=== PATIENT | male | born 1990 | race Caucasian/White ===

== ENCOUNTER 2017-01-18 10:43 | Emergency (ER) | payer OTHER ==
[2017-01-18 10:48] VITALS: BP 115/67; PULSE 58; TEMP 98.1; BMI 21.4
--- NOTE | 2017-01-18 11:01 | PDOC ---
History of Present Illness - General Chief Complaint: Pain Stated Complaint: ABD PAIN Time Seen by Provider: 01/18/17 10:55 History Source: Patient Exam Limitations: No Limitations - History of Present Illness Initial Comments: CHIEF COMPLAINT: 26 y/o afebrile male with no significant PMH c/o abdominal pain for the past 1 week. HISTORY OF PRESENT ILLNESS: The patient points to his epigastric region as source of pain for the past week. He denies fever, chills, n/v/d, CP, SOB, back pain, dysuria, constipation. He has not taken any OTC medications for his symptoms. Vital signs on arrival are within normal limits REVIEW OF SYSTEMS: GENERAL/CONSTITUTIONAL: No fever/chills. No weakness. No weight change. HEAD, EYES, EARS, NOSE AND THROAT: No change in vision. No ear pain or discharge. No sore throat. CARDIOVASCULAR: No chest pain or shortness of breath. RESPIRATORY: No cough, wheezing, or hemoptysis. GASTROINTESTINAL: +abdominal pain. No nausea, vomiting, diarrhea. GENITOURINARY: No dysuria, frequency, or change in urination. MUSCULOSKELETAL: No joint or muscle swelling or pain. No neck or back pain. SKIN: No rash or easy bruising. NEUROLOGIC: No headache, vertigo, loss of consciousness, or loss of sensation. PHYSICAL EXAM: GENERAL: The patient is awake, alert, and fully oriented, in no acute distress. He is very well appearing, ambulatory, in NAD or obvious discomfort. HEAD: Normal with no signs of trauma. ENT: Pupils equal, round and reactive to light, extraocular movements intact, sclera anicteric, conjunctiva clear. Neck supple. LUNGS: Clear to auscultation bilaterally. Normal excursion. No respiratory distress or use of accessory muscles. CV: RRR, S1/S2, no MRG. Cap refill < 2 sec. ABDOMEN: Soft, non-distended, very minimal TTP of epigastric region. No rebound , guarding or rigidity. Normal BS x4. EXTREMITIES: Normal range of motion, no edema. NEUROLOGICAL: Normal speech, normal gait. CN II-XII grossly intact. PSYCH: Normal mood, normal affect. SKIN: Warm, dry, normal turgor, no rashes or lesions noted. Past History - Past Medical History Allergies/Adverse Reactions: Allergies Allergy/AdvReac Type Severity Reaction Status Date / Time No Known Allergies Allergy Verified 01/18/17 10:47 Home Medications: Ambulatory Orders Ranitidine HCl [Zantac] 150 mg PO BID #30 tablet 01/18/17 Other medical history: DENIES - Psycho/Social/Smoking Cessation Hx Anxiety: No Suicidal Ideation: No Smoking History: Never smoked Hx Alcohol Use: No Drug/Substance Use Hx: No Substance Use Type: None *Physical Exam - Vital Signs Last Vital Signs Temp Pulse Resp BP Pulse Ox 98.1 F 58 L 20 115/67 100 01/18/17 10:44 01/18/17 10:44 01/18/17 10:44 01/18/17 10:44 01/18/17 10:44 Medical Decision Making - Medical Decision Making A/P: 26 y/o male, very well appearing, afebrile without n/v/d, with 1 week of epigastric pain. Plan is as follows: 1. PO zantac 2. IM toradol 3. Reassess The patient states his pain has completely resolved. Will d/c to home with an Rx for Zantac and GERD diet instructions. Instructed the patient to return to the ER with any worsening or concerning symptoms. The patient verbalizes understanding of all instructions, has no further questions and is awaiting discharge. *DC/Admit/Observation/Transfer Diagnosis at time of Disposition: Epigastric pain, Bile-induced gastritis - Discharge Dispostion Disposition: HOME Condition at time of disposition: Improved - Patient Instructions Printed Discharge Instructions: GERD Diet, DI for Gastroesophageal Reflux Disease (GERD), DI for Epigastric Pain Additional Instructions: Discharge Instructions: -A prescription was sent to your pharmacy; please take as prescribed for abdominal pain -Please follow diet suggestions to help with abdominal pain -Return to the ER with any worsening or concerning symptoms Print Language: SLOVAK
[2017-01-18] MEDS ORDERED: RANITIDINE HCL 150 MG TABLET (FP) PO ONE (11:15)
[2017-01-18] MEDS ORDERED: KETOROLAC TROMETHAMINE 60 MG/2 ML VIAL IM ONE (11:15)
[2017-01-18] MEDS ORDERED: KETOROLAC TROMETHAMINE 60 MG/2 ML VIAL ONE (11:28)
[2017-01-18] MEDS ORDERED: RANITIDINE HCL 150 MG TABLET (FP) ONE (11:28)
== END 2017-01-18 12:19 | disposition home or self-care (01) ==
LOC: JER 10:43
PROC: 3E0233Z Introduction of Anti-inflammatory into Muscle, Percutaneous Approach (ICD-10-PCS; principal; 2017-01-18)
DX: K29.60 Other gastritis without bleeding (principal); K21.9 Gastro-esophageal reflux disease without esophagitis
CPT/HCPCS: 99283-25

== ENCOUNTER 2017-10-10 11:13 | Emergency (ER) | payer OTHER ==
[2017-10-10 11:32] VITALS: BP 117/66; PULSE 62; TEMP 98.1; BMI 25.0
[2017-10-10] MEDS ORDERED: KETOROLAC TROMETHAMINE 60 MG/2 ML VIAL IM ONE (12:30)
[2017-10-10] MEDS ORDERED: KETOROLAC TROMETHAMINE 60 MG/2 ML VIAL ONE (12:33)
--- NOTE | 2017-10-10 12:36 | PDOC ---
History of Present Illness - General Chief Complaint: Cold Symptoms Stated Complaint: FEVER Time Seen by Provider: 10/10/17 12:00 History Source: Patient Exam Limitations: No Limitations - History of Present Illness Initial Comments: 10/10/17 12:34 My chief complaint: Lower back pain History of present illness: Patient is a 26-year-old male with no significant medical history here today complaining of lower back pain times one week. Patient also reports that last week he had a fever and cough however no longer has a cough. Patient denies any radiation of pain down the legs from his back or any saddle anesthesia or weakness or numbness of legs or any incontinency. Patient denies doing any heavy lifting or any exercise. Severity: reports: moderate Pain Location: reports: back Method of Injury: Yes: unknown Modifying Factors: improves with: None Loss of Consciousness: no loss of consciousness Associated Symptoms (Fall): denies symptoms Past History - Past Medical History Allergies/Adverse Reactions: Allergies Allergy/AdvReac Type Severity Reaction Status Date / Time No Known Allergies Allergy Verified 10/10/17 11:29 Home Medications: Ambulatory Orders NK [No Known Home Medication] 10/10/17 COPD: No Other medical history: DENIES. - Suicide/Smoking/Psychosocial Hx Smoking History: Never smoked Hx Alcohol Use: No Drug/Substance Use Hx: No Substance Use Type: None Review of Systems - Review of Systems Able to Perform ROS?: Yes Constitutional: No: Symptoms Reported HEENTM: No: Symptoms Reported Respiratory: No: Symptoms reported Cardiac (ROS): No: Symptoms Reported ABD/GI: No: Symptoms Reported : No: Symptoms Reported Musculoskeletal: Yes: Back Pain Integumentary: No: Symptoms Reported Neurological: No: Symptoms reported *Physical Exam - Vital Signs Last Vital Signs Temp Pulse Resp BP Pulse Ox 98.1 F 62 19 117/66 99 10/10/17 11:29 10/10/17 11:29 10/10/17 11:29 10/10/17 11:29 10/10/17 11:29 - Physical Exam General Appearance: Yes: Appropriately Dressed HEENT: positive: Normal ENT Inspection Neck: negative: Lymphadenopathy (R), Lymphadenopathy (L) Respiratory/Chest: positive: Lungs Clear, Normal Breath Sounds. negative: Chest Tender, Respiratory Distress Cardiovascular: positive: Regular Rhythm, Regular Rate, S1, S2 Gastrointestinal/Abdominal: positive: Normal Bowel Sounds, Soft. negative: Tender, Organomegaly, Increased Bowel Sounds, Distended, Guarding, Rebound, Tenderness, Hernia, Mass, Hepatomegaly, Spleenomegaly Integumentary: positive: Normal Color Neurologic: positive: Alert, Normal Response, Motor Strength 5/5 (b/l lower extremities), Respond to painful stimul, Responsive. negative: Numbness, Sensory Deficit Medical Decision Making - Medical Decision Making 10/10/17 12:36 Patient is a 26-year-old male with no significant medical history here today complaining of lower back pain times one week. Patient also reports that last week he had a fever and cough however no longer has a cough. Patient denies any radiation of pain down the legs from his back or any saddle anesthesia or weakness or numbness of legs or any incontinency. Patient denies doing any heavy lifting or any exercise. 10/10/17 12:37 Lower Back pain PLAN: toradol 60 mg IM follow up orthopedist [facility] [phone] *DC/Admit/Observation/Transfer Diagnosis at time of Disposition: Low back pain Qualifiers: Chronicity: unspecified Back pain laterality: bilateral Sciatica presence: without sciatica Qualified Code(s): M54.5 - Low back pain - Discharge Dispostion Disposition: HOME Condition at time of disposition: Stable - Referrals - Patient Instructions Additional Instructions: Avoid any strenuous activities or exercise use proper lifting technique demonstrated in exam room Follow up with orthopedist if back pain continues at [facility] at [phone] asked for the orthopedic clinic Follow up at [facility] to obtain a primary care physician to get a complete physical at [phone] Take ibuprofen as needed as directed by photo optics technician for pain Return to emergency room if symptoms worsen radiation of pain down the legs numbness or weakness of legs or numbness of private area or loss of control of bladder or bowel movement Patient voiced understanding of discharge instructions and all questions were answered Evite cualquier actividad extenuante o ejercicio: use la tcnica de levantamiento adecuada demostrada en la yessy de examen. [place] un seguimiento con un ortopedista si el dolor de espalda contina en el [facility] llamando al [phone] para solicitar la clnica ortopdica. [place] un seguimiento en la atencin mdica de Adrian Kee para obtener un m dico de atencin primaria para obtener un examen fsico completo al [phone] [place] ibuprofeno segn las indicaciones del fabricante para el dolor Regresar a la yessy de emergencias si los sntomas empeoran la radiacin del dolor en las piernas entumecimiento o debilidad de las piernas o entumecimiento del fartun privada o prdida de control de la vejiga o evacuacin intestinal El paciente expres comprensin de las instrucciones de don y todas las preguntas fueron respondidas - Post Discharge Activity
== END 2017-10-10 13:31 | disposition home or self-care (01) ==
LOC: JERFT 11:13
PROC: 3E0233Z Introduction of Anti-inflammatory into Muscle, Percutaneous Approach (ICD-10-PCS; principal; 2017-10-10)
DX: M54.5 Low back pain (principal)
CPT/HCPCS: 99281-25

== ENCOUNTER 2018-03-05 13:07 | Emergency (ER) | payer OTHER ==
[2018-03-05 13:36] VITALS: BP 119/64; PULSE 90; TEMP 100.9; BMI 22.3
[2018-03-05] MEDS ORDERED: ACETAMINOPHEN 500 MG TABLET (FP) PO ONE (14:25)
[2018-03-05] MEDS ORDERED: ACETAMINOPHEN 500 MG TABLET (FP) ONE (14:29)
--- NOTE | 2018-03-05 14:30 | PDOC ---
History of Present Illness - General Chief Complaint: Pain Stated Complaint: RT LEG SWOLLEN Time Seen by Provider: 03/05/18 13:39 History Source: Patient - History of Present Illness Initial Comments: 27-year-old male with 3 days worth of right leg pain and swelling. Subjective fever. No chills or night sweats. He denies associated trauma. 03/05/18 14:26 Past History - Past Medical History Allergies/Adverse Reactions: Allergies Allergy/AdvReac Type Severity Reaction Status Date / Time No Known Allergies Allergy Verified 03/05/18 13:32 Home Medications: Ambulatory Orders Cephalexin [Keflex] 500 mg PO QID 10 Days #40 capsule 03/05/18 Ibuprofen [Motrin -] 600 mg PO TID #30 tablet 03/05/18 Sulfamethoxazole/Trimethoprim [Bactrim Ds -] 1 tab PO BID #20 tablet 03/05/18 COPD: No Other medical history: DENIES. - Suicide/Smoking/Psychosocial Hx Smoking History: Never smoked Have you smoked in the past 12 months: No Hx Alcohol Use: No Drug/Substance Use Hx: No Substance Use Type: None Review of Systems - Review of Systems Is the patient limited Nepalese proficient: Yes Constitutional: Yes: See HPI *Physical Exam - Vital Signs Last Vital Signs Temp Pulse Resp BP Pulse Ox 100.9 F H 90 19 119/64 99 03/05/18 13:32 03/05/18 13:32 03/05/18 13:32 03/05/18 13:32 03/05/18 13:32 - Physical Exam Comments: 03/05/18 14:27 General Appearance: Well-developed, well-nourished A&O 3 NAD Head: NC/AT Ears: External auditory canals are normal and cleat Nose: Normal no discharge Neck: Supple nontender without lymphadenopathy masses or thyromegaly Cardiac: S1 and S2 without murmurs no peripheral edema cyanosis or pallor; extremities are warm and well-perfused; capillary refill is less than 2 seconds without carotid bruits Lungs: CTA and Percussion no rales or rhonchi or wheezing breath sounds are full bilaterally Abdomen: Positive bowel sounds; soft nondistended, nontender, no guarding or rebound tenderness; no masses Musculoskeletal; Adequately aligned spine range of motion intact to spine and extremities Neurologic: Cranial nerves II-XII are grossly intact strength and sensation are symmetric and intact cerebellar testing is negative Skin: Normal color and temperature normal texture turgor no lesions or eruptions Right lower extremity reveals erythema at the anterior aspect of the right lower leg. There is associated warmth sensitivity and induration. There is no focal fluctuance. The calf is soft and nontender. There is full passive ankle and knee range of motion without pain. There is no inguinal adenopathy. There are no gross sensory or motor deficits. The erythemic borders have been outlined. *DC/Admit/Observation/Transfer Diagnosis at time of Disposition: Cellulitis of right lower leg - Discharge Dispostion Disposition: HOME Condition at time of disposition: Improved Admit: No - Prescriptions Prescriptions: Cephalexin [Keflex] 500 mg PO QID 10 Days #40 capsule Ibuprofen [Motrin -] 600 mg PO TID #30 tablet Sulfamethoxazole/Trimethoprim [Bactrim Ds -] 1 tab PO BID #20 tablet - Referrals Referrals: Christine Fuller MD [Staff Physician] - - Patient Instructions Additional Instructions: The area of infection has been outlined on your leg. If the redness extends beyond the outlined area return to the emergency room as soon as possible. Otherwise follow-up in 2-3 days is advised. Take antibiotics as prescribed as well as pain medicine. Return to the emergency room if problem is unresolved or worsens - Post Discharge Activity
[2018-03-05] MEDS ORDERED: SULFAMETHOXAZOLE/TRIMETHOPRIM 800MG/160MG D.S. TABLET PO ONE (14:32)
[2018-03-05] MEDS ORDERED: SULFAMETHOXAZOLE/TRIMETHOPRIM 800MG/160MG D.S. TABLET ONE (14:37)
== END 2018-03-05 15:54 | disposition home or self-care (01) ==
LOC: JERFT 13:07
DX: L03.115 Cellulitis of right lower limb (principal)
CPT/HCPCS: 99281-25

== ENCOUNTER 2018-03-07 18:21 | Inpatient (IN) | payer OTHER ==
--- NOTE | 2018-03-07 18:48 | PDOC ---
Rapid Medical Evaluation Time Seen by Provider: 03/07/18 18:41 Medical Evaluation: Allergies Allergy/AdvReac Type Severity Reaction Status Date / Time No Known Allergies Allergy Verified 03/07/18 18:43 03/07/18 18:44 I have performed a brief in-person evaluation of this patient. The patient presents with a chief complaint of: RLE pain/redness/swelling. Seen for for same 2 days ago and started on keflex. States sxs worse now w/ subj fever. Denies trauma. No pmhx Pertinent physical exam findings: Febrile w/ RLE diffusely swollen w/ 3x4cm fluctuant induration over R lawrence w/ extensive circumferential erythema w/ ttp and warmth, no blisters or crepitus I have ordered the following:labs The patient will proceed to the ED for further evaluation Discharge Disposition - Diagnosis Cellulitis of right lower leg - Referrals - Patient Instructions - Post Discharge Activity
[2018-03-07 19:32] LABS: BASO % 0.3 % (0-2.0); EOS % 2.2 % (0-4.5); HEMATOCRIT 36.6 % (35.4-49); HEMOGLOBIN 12.6 GM/dL (11.7-16.9); LYMPH % 9.1 % (8-40); MCH 31.1 pg (25.7-33.7); MCHC 34.4 g/dl (32.0-35.9); MEAN CELL VOLUME 90.4 fl (80-96); MEAN PLT VOLUME 7.8 fl (7.5-11.1); NEUT % 81.4 % (42.8-82.8); PLATELET COUNT 306 K/MM3 (134-434); RBC 4.05 M/mm3 (4.00-5.60); RDW 12.2 % (11.9-15.9); WHITE BLOOD COUNT 13.8 K/mm3 (4.0-10.0)
[2018-03-07 19:47] LABS: URINE APPEARANCE CLEAR; URINE BILIRUBIN NEGATIVE (<2.0 mg/dL); URINE COLOR YELLOW; URINE GLUCOSE (UA) NEGATIVE (NEGATIVE); URINE KETONE NEGATIVE (NEGATIVE); URINE LEUK ESTERASE NEGATIVE (NEGATIVE); URINE NITRITE NEGATIVE (NEGATIVE); URINE UROBILINOGEN 4.0 E.U/dl mg/dL (0.2-1.0)
[2018-03-07 19:49] LABS: URINE PROTEIN 1+ (NEGATIVE)
[2018-03-07 19:51] LABS: CHLORIDE 110 mmol/L (98-107); SODIUM 140 mmol/L (136-145)
[2018-03-07 19:52] LABS: EPI CELLS RARE /HPF (FEW); URINE MUCUS RARE
[2018-03-07 20:01] LABS: ALBUMIN 3.4 g/dl (3.4-5.0); ALK PHOS 104 U/L (45-117); ANION GAP 8 (8-16); BILIRUBIN,TOTAL 0.9 mg/dL (0.2-1.0); BLOOD UREA NITROGEN 14 mg/dL (7-18); CALCIUM 8.4 mg/dL (8.5-10.1); CO2 22 mmol/L (21-32); CREATININE 0.8 mg/dL (0.7-1.3); GLUCOSE,RANDOM 112 mg/dL (74-106); SGOT/AST 21 U/L (15-37); SGPT/ALT 27 U/L (12-78); TOT PROT 6.8 g/dl (6.4-8.2)
[2018-03-07] MEDS ORDERED: VANCOMYCIN 1,000 MG in DEXTROSE 5%-WATER - 250 ML IVPB ONE (20:27)
[2018-03-07] MEDS ORDERED: SODIUM CHLORIDE 1,000 ML IV STA ×2 (20:27→20:28)
--- NOTE | 2018-03-07 20:27 | PDOC ---
Attending Attestation - HPI HPI: 03/07/18 20:36 The patient is a 27 year old male with no significant PMH who presents to the emergency department with increased RLE redness, swelling, and pain beginning approximately 5 days ago. The patient was evaluated here for his RLE symptoms and was given Keflex and Bactrim, which he states he has used to minimal relief , He presents today after his RLE redness and swelling has increased with associated chills. The patient denies chest pain or shortness of breath. He denies nausea, vomiting, or diarrhea. Allergies: NKA PCP: None reported. <Gerald Naylor - Last Filed: 03/07/18 20:36> - Resident Resident Name: Omar Haynes - ED Attending Attestation I have performed the following: I have examined & evaluated the patient, The case was reviewed & discussed with the resident, I agree w/resident's findings & plan, Exceptions are as noted - Physicial Exam PE: 03/08/18 19:21 *Physical Exam General Appearance: Yes: Appropriately Dressed. No: Apparent Distress, Intoxicated HEENT: positive: EOMI, JULIA, Normal ENT Inspection, Normal Voice, TMs Normal, Pharynx Normal. negative: Pale Conjunctivae, Photophobia, Scleral Icterus (R), Scleral Icterus (L) Neck: positive: Trachea midline, Normal Thyroid, Supple. negative: Tender, Rigid, Carotid bruit, Stridor, Lymphadenopathy (R), Lymphadenopathy (L), Thyromegaly Respiratory/Chest: positive: Lungs Clear, Normal Breath Sounds. negative: Chest Tender, Respiratory Distress, Accessory Muscle Use, Labored Respiration, RES, Crackles, Rales, Rhonchi, Stridor, Wheezing, Dullness Cardiovascular: positive: Regular Rhythm, Regular Rate, S1, S2. negative: Edema , JVD, Murmur, Bradycardia, Tachycardia Vascular Pulses: Dorsalis-Pedis (R): 2+, Doralis-Pedis (L): 2+ Gastrointestinal/Abdominal: positive: Normal Bowel Sounds, Flat, Soft. negative : Tender, Organomegaly, Pulsatile Mass, Increased Bowel Sounds, Decreased BS, Distended, Guarding, Rebound, Hernia, Hepatomegaly, Spleenomegaly Lymphatic: negative: Adenopathy, Tenderness Musculoskeletal: positive: Normal Inspection. negative: CVA Tenderness, Decreased Range of Motion Extremity: positive: Normal Capillary Refill, Normal Inspection, Normal Range of Motion, Pelvis Stable. erythema of right lower leg from knee to ankle, tender negative: Pedal Edema, Swelling, Integumentary: positive: Normal Color, Dry, Warm. negative: Cyanotic, Erythema , Jaundice, Rash Neurologic: positive: salesperson hosiery II-XII NML intact, Fully Oriented, Alert, Normal Mood/ Affect, Motor Strength 5/5. negative: EOM Palsy, Facial Droop, Sensory Deficit - Medical Decision Making 03/08/18 19:23 Pt admitted for IV abx <Sanchez Fraga - Last Filed: 03/08/18 19:24>
[2018-03-07] MEDS ORDERED: VANCOMYCIN 1 GRAM (PRE-DOCKED) 1,000 MG/250 ML BAG IVPB ONE (20:32)
[2018-03-07] MEDS ORDERED: ACETAMINOPHEN 325 MG TABLET (FP) PO ONE ×2 (20:52)
--- NOTE | 2018-03-07 21:41 | PDOC ---
History of Present Illness - General Chief Complaint: Edema Stated Complaint: INJURY Time Seen by Provider: 03/07/18 18:41 History Source: Patient - History of Present Illness Initial Comments: 03/07/18 21:34 Patient is a 27M with no significant medical history here today complaining of erythema and swelling to right leg. He was seen in this ED two days ago, diagnosed with cellulitis, and given bactrim and ceflex. Patient reports compliance with medication. Patient reports increasing fever, chills, erythema, and pain to right leg. Patient denies history of blood clots. Patient endorses some possible minor trauma to leg. Past History - Past Medical History Allergies/Adverse Reactions: Allergies Allergy/AdvReac Type Severity Reaction Status Date / Time No Known Allergies Allergy Verified 03/07/18 18:43 Home Medications: Ambulatory Orders Cephalexin [Keflex] 500 mg PO QID 10 Days #40 capsule 03/05/18 Ibuprofen [Motrin -] 600 mg PO TID #30 tablet 03/05/18 Sulfamethoxazole/Trimethoprim [Bactrim Ds -] 1 tab PO BID #20 tablet 03/05/18 COPD: No Other medical history: DENIES. - Suicide/Smoking/Psychosocial Hx Smoking History: Never smoked Have you smoked in the past 12 months: No Hx Alcohol Use: No Drug/Substance Use Hx: No Substance Use Type: None Review of Systems - Review of Systems Comments:: 03/07/18 21:44 GENERAL/CONSTITUTIONAL: Positive for fever and chills. No weakness. HEAD, EYES, EARS, NOSE AND THROAT: No change in vision. No sore throat. CARDIOVASCULAR: No chest pain or shortness of breath RESPIRATORY: No cough, wheezing, or hemoptysis. GASTROINTESTINAL: No nausea, vomiting, diarrhea or constipation. GENITOURINARY: No dysuria, frequency, or change in urination. MUSCULOSKELETAL: Positive for right leg pain. No neck or back pain. SKIN: No rash NEUROLOGIC: No headache, vertigo, loss of consciousness, or change in strength/ sensation. ENDOCRINE: No increased thirst. No abnormal weight change HEMATOLOGIC/LYMPHATIC: No anemia, easy bleeding, or history of blood clots. ALLERGIC/IMMUNOLOGIC: No hives or skin allergy. *Physical Exam - Vital Signs Last Vital Signs Temp Pulse Resp BP Pulse Ox 100.6 F H 91 H 19 134/80 99 03/07/18 18:44 03/07/18 18:44 03/07/18 18:44 03/07/18 18:44 03/07/18 18:44 - Physical Exam Comments: 03/07/18 21:47 GENERAL: Awake, alert, and fully oriented, in no acute distress R LEG: Erythematous diffusely around right leg below knee with non-pitting edema in right foot, 1+ pulse HEAD: No signs of trauma, normocephalic, atraumatic EYES: PERRLA, EOMI, sclera anicteric, conjunctiva clear ENT: Auricles normal inspection, hearing grossly normal, nares patent, oropharynx clear without exudates. Moist mucosa NECK: Normal ROM, supple, no lymphadenopathy, JVD, or masses LUNGS: No distress, speaks full sentences, clear to auscultation bilaterally HEART: Regular rate and rhythm, normal S1 and S2, no murmurs, rubs or gallops, peripheral pulses normal and equal bilaterally. ABDOMEN: Soft, nontender, normoactive bowel sounds. No guarding, no rebound. No masses NEUROLOGICAL: Cranial nerves II through XII grossly intact. Normal speech, no focal sensorimotor deficits ED Treatment Course - LABORATORY CBC & Chemistry Diagram: 03/07/18 19:07 03/07/18 19:07 - ADDITIONAL ORDERS Additional order review: Laboratory Results 03/07/18 03/07/18 19:16 19:07 Sodium 140 Potassium 4.0 Chloride 110 H Carbon Dioxide 22 Anion Gap 8 BUN 14 Creatinine 0.8 Creat Clearance w eGFR > 60 Random Glucose 112 H Calcium 8.4 L Total Bilirubin 0.9 AST 21 ALT 27 Alkaline Phosphatase 104 Total Protein 6.8 Albumin 3.4 Urine Color Yellow Urine Appearance Clear Urine pH 6.0 Ur Specific [place] 1.024 Urine Protein 1+ H Urine Glucose (UA) Negative Urine Ketones Negative Urine Blood Negative Urine Nitrite Negative Urine Bilirubin Negative Urine Urobilinogen 4.0 e.u/dl Ur Leukocyte Esterase Negative Urine WBC (Auto) 1 Urine RBC (Auto) 1 Ur Epithelial Cells Rare Urine Mucus Rare 03/07/18 19:07 RBC 4.05 MCV 90.4 MCHC 34.4 RDW 12.2 MPV 7.8 Neutrophils % 81.4 Lymphocytes % 9.1 Monocytes % 7.0 Eosinophils % 2.2 Basophils % 0.3 - RADIOLOGY Radiology Studies Ordered: Category Date Time Status DUPLEX VASCUL US-1 LEG [US] Stat Ultrasound 03/07/18 20:28 Ordered - Medications Given in the ED: ED Medications Discontinued Medications Generic Name Dose Route Start Last Admin Trade Name Fito PRN Reason Stop Dose Admin Metronidazole 500 mg in 100 mls @ 100 mls/hr 03/07/18 20:28 03/07/18 20:39 Flagyl 500mg Premixed Ivpb - IVPB 03/07/18 21:27 100 mls/hr ONCE ONE Administration Sodium Chloride 1,000 mls @ 1,000 mls/hr 03/07/18 20:27 03/07/18 20:39 Normal Saline - IV 03/07/18 21:26 1,000 mls/hr ASDIR STA Administration Medical Decision Making - Medical Decision Making 03/07/18 21:48 Patient is a 27M with no significant medical history here today with cellulitis. Vital signs notable for fever. Exam shows cellulitis with no obvious abscess. Patient given 2L fluid bolus, vancomycin and metronidazole. Labs notable for leukocytosis. Will evaluate further with us to rule out dvt. 03/07/18 22:01 US negative for clot, does show possible hematoma. Will admit to medicine. *DC/Admit/Observation/Transfer Diagnosis at time of Disposition: Cellulitis of right lower leg - Discharge Dispostion Condition at time of disposition: Stable Decision to Admit order: Yes - Referrals - Patient Instructions - Post Discharge Activity
[2018-03-07] MEDS ORDERED: ACETAMINOPHEN 325 MG TABLET (FP) ONE (22:10)
[2018-03-08] MEDS ORDERED: CEFTRIAXONE 2 GM/100 ML BAG IVPB ONE (00:49)
--- NOTE | 2018-03-08 01:01 | HP ---
CHIEF COMPLAINT: right leg swelling and pain PCP:2 [facility] HISTORY OF PRESENT ILLNESS: 27 yr old man with no significant pmhx presents to ED for worsening right leg swelling and pain since Monday. He was walking around in the dark on Monday night when he hit his leg x3 on a wooden chair or table. On Monday he notes swelling and redness with increasing pain. He came to the ED on 03/05 and was dc' d with keflex and bactrim po, which he took on Monday and Monday. The pain and swelling became worse and he began to have chills and fevers last. He has not been able to weight bear since monday. Denies chest pain, discharge from the wound, n/v. ER course was notable for: (1) DVT study negative (2) IV abx (3) Recent Travel: none PAST MEDICAL HISTORY: was seen at [facility] 2 mo ago for full physical and says he was told everything was okay. denies dx of DM, HTN Has erythema in left eye, says he has had it for 3 yrs, was told by eye doctor it was "due to the sun" PAST SURGICAL HISTORY: hand laceration repair 12/2017 Social History: sexually active, not currently employed, lives with family friends, parents are in his country. Has a sister and brother in the area. no pets in the house. Smoking: denies Alcohol: denies Drugs: denies Family History: mother with DM, dx'd at age 52 Allergies No Known Allergies Allergy (Verified 03/07/18 18:43) HOME MEDICATIONS: Home Medications Medication Instructions Recorded Cephalexin [Keflex] 500 mg PO QID 10 Days #40 capsule 03/05/18 Ibuprofen [Motrin -] 600 mg PO TID #30 tablet 03/05/18 Sulfamethoxazole/Trimethoprim 1 tab PO BID #20 tablet 03/05/18 [Bactrim Ds -] REVIEW OF SYSTEMS CONSTITUTIONAL: Present: fever, chills, Absent: diaphoresis, generalized weakness, malaise, loss of appetite, weight change HEENT: Absent: rhinorrhea, nasal congestion, throat pain, throat swelling, difficulty swallowing, mouth swelling, ear pain, eye pain, visual changes CARDIOVASCULAR: Absent: chest pain, syncope, palpitations, irregular heart rate, lightheadedness , peripheral edema RESPIRATORY: Absent: cough, shortness of breath, dyspnea with exertion, orthopnea, wheezing, stridor, hemoptysis GASTROINTESTINAL: Absent: abdominal pain, abdominal distension, nausea, vomiting, diarrhea, constipation GENITOURINARY: Absent: dysuria, frequency, urgency, hesitancy, hematuria, flank pain, MUSCULOSKELETAL: Absent: myalgia, arthralgia, joint swelling, back pain, neck pain SKIN: Absent: rash, itching, pallor HEMATOLOGIC/IMMUNOLOGIC: Absent: easy bleeding, easy bruising, lymphadenopathy, frequent infections ENDOCRINE: Absent: unexplained weight gain, unexplained weight loss, heat intolerance, cold intolerance NEUROLOGIC: Absent: headache, focal weakness or paresthesias, dizziness, unsteady gait, seizure, mental status changes PHYSICAL EXAMINATION Vital Signs - 24 hr 03/07/18 03/07/18 18:44 22:49 Temperature 100.6 F H Pulse Rate 91 H Pulse Rate [ 102 H Apical] Respiratory 19 18 Rate Blood Pressure 134/80 Blood Pressure 107/56 [Left Arm] O2 Sat by Pulse 99 98 Oximetry (%) GENERAL: Awake, alert, and fully oriented, in no acute distress. HEAD: Normal with no signs of trauma. EYES: Pupils equal, round and reactive to light, extraocular movements intact, sclera anicteric, conjunctiva clear. No lid lag. EARS, NOSE, THROAT: Ears normal, nares patent, oropharynx clear without exudates. Moist mucous membranes. NECK: Normal range of motion, supple without lymphadenopathy, JVD, or masses. LUNGS: Breath sounds equal, clear to auscultation bilaterally. No wheezes, and no crackles. No accessory muscle use. HEART: Regular rate and rhythm, normal S1 and S2 without murmur, rub or gallop. ABDOMEN: Soft, nontender, not distended, normoactive bowel sounds, no guarding, no rebound, no masses. No hepatomegaly or splenomegaly. MUSCULOSKELETAL: Normal range of motion at all joints. No bony deformities. No CVA tenderness. UPPER EXTREMITIES: 2+ radial pulses, warm, well-perfused. No cyanosis. No clubbing. No peripheral edema. LOWER EXTREMITIES: 2+ dp/tp/popliteal b/l pulses, warm, well-perfused. Left: No calf tenderness. No peripheral edema. right: raised hematoma midshin, soft with swelling from below knee to feet. surronding erythema edema from site of hematoma radiating out, TTP marked anteriorly. fluctuance underlying the raised area NEUROLOGICAL: Cranial nerves II-XII intact. Normal speech. 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 Good eye contact. Appropriate mood and affect. SKIN: Warm, dry, normal turgor, no rashes, normal capillary refill. Laboratory Results - last 24 hr 03/07/18 03/07/18 03/07/18 19:07 19:07 19:16 WBC 13.8 H RBC 4.05 Hgb 12.6 Hct 36.6 MCV 90.4 MCH 31.1 MCHC 34.4 RDW 12.2 Plt Count 306 MPV 7.8 Neutrophils % 81.4 Lymphocytes % 9.1 Monocytes % 7.0 Eosinophils % 2.2 Basophils % 0.3 Sodium 140 Potassium 4.0 Chloride 110 H Carbon Dioxide 22 Anion Gap 8 BUN 14 Creatinine 0.8 Creat Clearance w eGFR > 60 Random Glucose 112 H Calcium 8.4 L Total Bilirubin 0.9 AST 21 ALT 27 Alkaline Phosphatase 104 Total Protein 6.8 Albumin 3.4 Urine Color Yellow Urine Appearance Clear Urine pH 6.0 Ur Specific [place] 1.024 Urine Protein 1+ H Urine Glucose (UA) Negative Urine Ketones Negative Urine Blood Negative Urine Nitrite Negative Urine Bilirubin Negative Urine Urobilinogen 4.0 e.u/dl Ur Leukocyte Esterase Negative Urine WBC (Auto) 1 Urine RBC (Auto) 1 Ur Epithelial Cells Rare Urine Mucus Rare ASSESSMENT/PLAN: 27 yr old man with cellulitis who failed outpatient antibiotic therapy admitted for IV antibiotics #Sepsis from cellulitis in right leg secondary to trauma - continue vanc for MRSA coverage, add rocephin 2g q24hr for broader gram +/- organisms, Id consult for vanc approval - ultrasound shows 4.5x1.1cm hypoechoc density suggestive of complex collection/ hematoma, may need surgery to drain the site - r/o diabetes(A1c), r/o drug use(urine tox) - check xray to r/o any fracture as to why he was not able to weigh bear, check ESR and CRP - pain controlled with iv tylenol for now - check HIV, STD testing offered and pt accepts - check lactic acid, blood cx - get baseline EKG DVT prophylaxs, pt is a fall risk until he can weight bear, elevate the leg with continuous bedrest, heparin subq for dvt prophylaxis Visit type - Emergency Visit Emergency Visit: Yes ED Registration Date: 03/07/18 Care time: The patient presented to the Emergency Department on the above date and was hospitalized for further evaluation of their emergent condition. - New Patient This patient is new to me today: Yes Date on this admission: 03/07/18 - Critical Care Critical Care patient: No Hospitalist Screening - Colonoscopy Questionnaire Colonoscopy Questionnaire: Colonoscopy Questionnaire - Patient: 50 - 75 years old and never had a screening colonoscopy: Unknown History of colon or rectal polyps, or CA: Unknown History of IBD, Crohn's disease or UC: Unknown History of abdominal radiation therapy as a child: Unknown - Relative: 1 with colon or rectal CA, or polyps at age 60 or younger: Unknown Colon or rectal CA diagnosed at age 45 or younger: Unknown Multiple relatives with colon or rectal CA: Unknown - Outcome: Screening Result: Negative Screen
--- NOTE | 2018-03-08 01:21 | PN ---
Teaching Attending Note Name of Resident: Micki Ramesh ATTENDING PHYSICIAN STATEMENT I saw and evaluated the patient. Chart, data, imaging reviewed. I reviewed the resident's note and discussed the case with the resident. I agree with the resident's findings and plan as documented. SUBJECTIVE: 27 yr old man with no significant medical history presented to with worsening right lower extremity erythema and pain. He said that on monday he hit his right leg against a wooden table in his apt and developed pain and erythema, went to er on monday and was given bactrim and keflex for right leg cellultis that he said he took. Worsening of leg pain, difficulty with weight bearing and chills which started in last 24hrs. OBJECTIVE: Last Vital Signs Temp Pulse Resp BP Pulse Ox 100.6 F H 102 H 18 107/56 98 03/07/18 18:44 03/07/18 22:49 03/07/18 22:49 03/07/18 22:49 03/07/18 22:49 General- nontoxic appearing, nad heent- moist oral mucosa neck -supple cv -s1s+s2+rrr chest - clear lungs abdomen soft, bs+ ext- right leg with erythema, tenderness+, fluid collection over lawrence, fluctance + Abnormal Lab Results 03/07/18 03/07/18 03/07/18 19:07 19:07 19:16 WBC 13.8 H Chloride 110 H Random Glucose 112 H Calcium 8.4 L Urine Protein 1+ H Right lower ext U/s- neg for dvt ASSESSMENT AND PLAN: #Sepsis secondary to cellulitis of right leg. Failure of PO antibiotics. Needs admission for IV antibiotics. DVT ruled out with duplex u/s. Should r/o DM and HIV. Do not suspect compartment syndrome. -admit to med/surg -IV vancomycin 1g IV q12hrs -ceftriaxone 2g IV q24hrs -ID consult -U/S of right leg to check for drainable collection -surgery evaluation for possible drainage of right leg collection -lactate level -blood cultures x2 -HIV test -a1c -right leg elevation -warm pack -screen for other stds -urine toxicology -serum etoh level #DVT ppx -heparin sc
[2018-03-08 07:18] LABS: BASO % 0.2 % (0-2.0); HEMOGLOBIN 12.8 GM/dL (11.7-16.9); LYMPH % 8.5 % (8-40); MCH 31.7 pg (25.7-33.7); MCHC 34.7 g/dl (32.0-35.9); MEAN CELL VOLUME 91.3 fl (80-96); MEAN PLT VOLUME 8.1 fl (7.5-11.1); MONO % 9.5 % (3.8-10.2); NEUT % 79.8 % (42.8-82.8); PLATELET COUNT 297 K/MM3 (134-434); RBC 4.05 M/mm3 (4.00-5.60); RDW 12.7 % (11.9-15.9); WHITE BLOOD COUNT 10.6 K/mm3 (4.0-10.0)
[2018-03-08 08:11] LABS: ANION GAP 9 (8-16); BLOOD UREA NITROGEN 7 mg/dL (7-18); CALCIUM 8.1 mg/dL (8.5-10.1); CHLORIDE 111 mmol/L (98-107); CO2 23 mmol/L (21-32); GLUCOSE,RANDOM 98 mg/dL (74-106); POTASSIUM 3.9 mmol/L (3.5-5.1); SODIUM 143 mmol/L (136-145)
[2018-03-08 09:12] LABS: CREATININE 0.7 mg/dL (0.7-1.3)
[2018-03-08 10:39] LABS: RPR NONREACTIVE (NONREACTIVE)
[2018-03-08] MEDS ORDERED: ACETAMINOPHEN 325 MG TABLET (FP) ONE (12:54)
[2018-03-08] MEDS ORDERED: ACETAMINOPHEN 325 MG TABLET (FP) PO ONE (12:57)
[2018-03-08 14:24] VITALS: BMI 22.7
--- NOTE | 2018-03-08 14:35 | CON.ID ---
Consult Consult Specialty:: Infectious disease Referred by:: Dr. Ramesh Reason for Consultation:: RLE cellulitis - History of Present Illness Chief Complaint: Right leg pain History of Present Illness: The patient is a 27 yo m w/ no PMH who comes into the ED c/o right leg swelling and pain for the past 4 days. Patient struck his leg on a wooden chair on Monday, then experienced progressive redness and swelling to the lower limb. Patient also endorses fevers and chills over this time. He went to the ER at [facility] on 03/05 and was d/c on Keflex and Bactrim, which he took without relief. Patient denies chest pain, abdominal pain, nausea, vomiting, diarrhea, constipation. - History Source History Provided By: Patient, Family Member Limitations to Obtaining History: Language Barrier (djiboutian) - Alcohol/Substance Use Hx Alcohol Use: No - Smoking History Smoking history: Never smoked Have you smoked in the past 12 months: No Home Medications - Allergies Allergies/Adverse Reactions: Allergies Allergy/AdvReac Type Severity Reaction Status Date / Time No Known Allergies Allergy Verified 03/07/18 18:43 - Home Medications Home Medications: Ambulatory Orders Cephalexin [Keflex] 500 mg PO QID 10 Days #40 capsule 03/05/18 Ibuprofen [Motrin -] 600 mg PO TID #30 tablet 03/05/18 Sulfamethoxazole/Trimethoprim [Bactrim Ds -] 1 tab PO BID #20 tablet 03/05/18 Review of Systems - Review of Systems Constitutional: reports: Chills, Fever. denies: Diaphoresis, Lethargy, Night Sweats, Unintentional Wgt. Loss, Weakness Cardiovascular: denies: Chest Pain, Palpitations, Shortness of Breath Respiratory: denies: Cough, Hemoptysis, SOB Gastrointestinal: denies: Abdominal Pain, Constipation, Diarrhea Genitourinary: denies: Burning, Dysuria Musculoskeletal: denies: Crepitus Integumentary: reports: Blister, Erythema Physical Exam Vital Signs: Vital Signs Temperature 100.5 F H 03/08/18 13:50 Pulse Rate 82 03/08/18 13:50 Respiratory Rate 20 03/08/18 13:50 Blood Pressure 150/97 03/08/18 13:50 O2 Sat by Pulse Oximetry (%) 98 03/08/18 12:56 Constitutional: Yes: Well Nourished, No Distress, Calm HENT: Yes: Atraumatic, Normocephalic Neck: Yes: Supple, Trachea Midline Cardiovascular: Yes: Regular Rate and Rhythm, Murmur (soft, 2/5 ejection murmur) , S1, S2. No: JVD, Gallop Respiratory: Yes: Regular, CTA Bilaterally Gastrointestinal: Yes: Normal Bowel Sounds, Soft Extremities: Yes: Erythema (the right lower limb has an area of erythema and warmth which is tender to palpation. In the center of this area is a raised are of fluctance which is less erythmatous than the surrounding skin. This are is also warm and tender to palpation.) Labs: CBC, BMP 03/08/18 06:50 03/08/18 06:50 Imaging - Results Chest X-ray: Report Reviewed, Image Reviewed Ultrasound: Report Reviewed Assessment/Plan The patient is a 27 yo m w/ no PMH admitted for RLE cellulitis and likely abscess. #cellulitis and abscess -f/u Bcx -will cover for gram positives and MRSA -Ceftriaxone 1g daily -Vancomycin 1g daily -suggest surgery consult for possible I&D -will follow -Case d/w Dr. Singh
--- NOTE | 2018-03-08 15:01 | PN ---
Physical Exam: SUBJECTIVE: Patient seen and examined. He is still complaining onf right leg pain, fever, chills. He denies chest pain, palpitations, SOB. OBJECTIVE: Vital Signs Period Temp Pulse Resp BP Sys/[place] Pulse Ox Last 24 Hr 99.2 F-101.3 F 80-102 16-20 107-150/56-97 98-100 GENERAL: The patient is awake, alert, and fully oriented, in no acute distress, lying in bed. HEAD: Normal with no signs of trauma. EYES: extraocular movements intact, sclera anicteric, conjunctiva clear. ENT: oropharynx clear without exudates, moist mucous membranes. NECK: Trachea midline, full range of motion, supple. LUNGS: clear to auscultation bilaterally, no wheezes, no crackles, no accessory muscle use. HEART: Regular rate and rhythm, S1, S2 without murmur, rub or gallop. ABDOMEN: Soft, nontender, nondistended, normoactive bowel sounds, no guarding, no rebound, no hepatosplenomegaly, no masses. EXTREMITIES: 2+ pulse in LLE, 1+ pulse in RLE. Also RLE erythema and swelling ranging from the ankle to the knee, no crepitus. The te is also mid lawrence collection of pus, 2x2 cm, not draining, warm to touch, flactuance present. NEUROLOGICAL: Normal speech, no facial asymmetry, gait not observed. PSYCH: Normal mood, normal affect. SKIN: Warm, dry, normal turgor. Laboratory Results - last 24 hr 03/07/18 03/07/18 03/07/18 19:07 19:07 19:16 WBC 13.8 H RBC 4.05 Hgb 12.6 Hct 36.6 MCV 90.4 MCH 31.1 MCHC 34.4 RDW 12.2 Plt Count 306 MPV 7.8 Neutrophils % 81.4 Lymphocytes % 9.1 Monocytes % 7.0 Eosinophils % 2.2 Basophils % 0.3 ESR Sodium 140 Potassium 4.0 Chloride 110 H Carbon Dioxide 22 Anion Gap 8 BUN 14 Creatinine 0.8 Creat Clearance w eGFR > 60 Random Glucose 112 H Lactic Acid Calcium 8.4 L Total Bilirubin 0.9 AST 21 ALT 27 Alkaline Phosphatase 104 C-Reactive Protein Total Protein 6.8 Albumin 3.4 Urine Color Yellow Urine Appearance Clear Urine pH 6.0 Ur Specific [place] 1.024 Urine Protein 1+ H Urine Glucose (UA) Negative Urine Ketones Negative Urine Blood Negative Urine Nitrite Negative Urine Bilirubin Negative Urine Urobilinogen 4.0 e.u/dl Ur Leukocyte Esterase Negative Urine WBC (Auto) 1 Urine RBC (Auto) 1 Ur Epithelial Cells Rare Urine Mucus Rare RPR Titer HIV 1&2 Antibody Screen HIV P24 Antigen 03/08/18 03/08/18 03/08/18 06:50 06:50 06:50 WBC 10.6 H RBC 4.05 Hgb 12.8 Hct 37.0 MCV 91.3 MCH 31.7 MCHC 34.7 RDW 12.7 Plt Count 297 MPV 8.1 Neutrophils % 79.8 Lymphocytes % 8.5 Monocytes % 9.5 Eosinophils % 2.0 Basophils % 0.2 ESR Sodium 143 Potassium 3.9 Chloride 111 H Carbon Dioxide 23 Anion Gap 9 BUN 7 D Creatinine 0.7 Creat Clearance w eGFR Random Glucose 98 Lactic Acid Calcium 8.1 L Total Bilirubin AST ALT Alkaline Phosphatase C-Reactive Protein 14.7 H Total Protein Albumin Urine Color Urine Appearance Urine pH Ur Specific [place] Urine Protein Urine Glucose (UA) Urine Ketones Urine Blood Urine Nitrite Urine Bilirubin Urine Urobilinogen Ur Leukocyte Esterase Urine WBC (Auto) Urine RBC (Auto) Ur Epithelial Cells Urine Mucus RPR Titer HIV 1&2 Antibody Screen HIV P24 Antigen 03/08/18 03/08/18 03/08/18 06:50 06:50 06:50 WBC RBC Hgb Hct MCV MCH MCHC RDW Plt Count MPV Neutrophils % Lymphocytes % Monocytes % Eosinophils % Basophils % ESR 28 H Sodium Potassium Chloride Carbon Dioxide Anion Gap BUN Creatinine Creat Clearance w eGFR Random Glucose Lactic Acid 0.6 Calcium Total Bilirubin AST ALT Alkaline Phosphatase C-Reactive Protein Total Protein Albumin Urine Color Urine Appearance Urine pH Ur Specific [place] Urine Protein Urine Glucose (UA) Urine Ketones Urine Blood Urine Nitrite Urine Bilirubin Urine Urobilinogen Ur Leukocyte Esterase Urine WBC (Auto) Urine RBC (Auto) Ur Epithelial Cells Urine Mucus RPR Titer Nonreactive HIV 1&2 Antibody Screen Negative HIV P24 Antigen Negative Active Medications Generic Name Dose Route Start Last Admin Trade Name Freq PRN Reason Stop Dose Admin Ceftriaxone Sodium 2 gm/ 100 mls @ 200 mls/hr 03/08/18 22:00 Dextrose IVPB [facility] Protocol ASSESSMENT/PLAN: The patient is a 27 year old male with no PMH that is admitted for cellulitis who failed outpatient antibiotic therapy admitted for IV antibiotics Sepsis due to cellulitis in RLE: - secondary to trauma - continue Vanomycin, continue Rocephin 2 g daily, will follow up ID recommendations - LA normal, blood cultures pending - Ultrasound shows 4.5x1.1cm density suggestive of complex collection/hematoma - Surgery consulted, will follow up recommendations. He will be NPO after midnight for possible surgery tomorrow. - ESR 28 and CRP elevated to 14.7 - pain controlled with Tylenol 650 mg PO Q6h - the patient had screening for HIV, RPR that came back negative. Chlamydia and Gonnorhea pending DVT PPX: -Heparin sq F/E/N: NS/no changes/Regular Dispo: med surg Visit type - Emergency Visit Emergency Visit: Yes ED Registration Date: 03/07/18 Care time: The patient presented to the Emergency Department on the above date and was hospitalized for further evaluation of their emergent condition. - New Patient This patient is new to me today: Yes Date on this admission: 03/08/18 - Critical Care Critical Care patient: No
[2018-03-08] MEDS: ACETAMINOPHEN 325 MG TABLET (FP) PO PRN ×2 (15:45→23:39)
[2018-03-08] MEDS: SODIUM CHLORIDE 1,000 ML IV SCH (15:47)
--- NOTE | 2018-03-08 15:55 | PN ---
Teaching Attending Note Name of Resident: Sterling Suero ATTENDING PHYSICIAN STATEMENT I saw and evaluated the patient. I reviewed the resident's note and discussed the case with the resident. I agree with the resident's findings and plan as documented. SUBJECTIVE: OBJECTIVE: ASSESSMENT AND PLAN: R LE cellulitis Infected hematoma v. abscess Await c/s Surgical evaluation Empiric vancomycin / ceftriaxone
[2018-03-08] MEDS ORDERED: VANCOMYCIN 1,000 MG in DEXTROSE 5%-WATER - 250 ML IVPB SCH (16:00)
[2018-03-08] MEDS ORDERED: VANCOMYCIN 1,000 MG in DEXTROSE 5%-WATER - 250 ML IVPB ONE (16:00)
[2018-03-08 19:14] LABS: COCAINE, UR NEGATIVE ng/ml (CUTOFF=300); METHADONE, UR NEGATIVE ng/ml (CUTOFF=300); OPIATES, URI NEGATIVE ng/ml (CUTOFF=300); PHENCYCLIDINE,URINE NEGATIVE ng/ml (CUTOFF=25); URINE AMPHETAMINES NEGATIVE ng/ml (CUTOFF=500); URINE BARBITURATES NEGATIVE ng/ml (CUTOFF=200); URINE BENZODIAZEPINES NEGATIVE ng/ml (CUTOFF=200)
[2018-03-08] MEDS ORDERED: traMADol HCL 50 MG TABLET PO ONE (19:37)
[2018-03-08] MEDS ORDERED: DEXTROSE 5%-WATER 100 ML IVPB ONE (21:11)
[2018-03-08] MEDS: HEPARIN NA (PORCINE) 5,000 UNITS/ML 1ML VIAL SQ SCH (21:18)
[2018-03-08] MEDS ORDERED: CEFTRIAXONE 2 GM in DEXTROSE 5%-WATER 100 ML IVPB SCH ×2 (22:00)
[2018-03-09] MEDS ORDERED: VANCOMYCIN 1,000 MG in DEXTROSE 5%-WATER - 250 ML IVPB SCH ×2 (04:00→16:00)
[2018-03-09 07:44] LABS: BASO % 0.4 % (0-2.0); EOS % 2.4 % (0-4.5); HEMATOCRIT 36.3 % (35.4-49); HEMOGLOBIN 12.6 GM/dL (11.7-16.9); LYMPH % 21.9 % (8-40); MCH 31.5 pg (25.7-33.7); MCHC 34.7 g/dl (32.0-35.9); MEAN CELL VOLUME 90.6 fl (80-96); MONO % 9.1 % (3.8-10.2); NEUT % 66.2 % (42.8-82.8); PLATELET COUNT 321 K/MM3 (134-434); RBC 4.01 M/mm3 (4.00-5.60); RDW 12.5 % (11.9-15.9); WHITE BLOOD COUNT 9.4 K/mm3 (4.0-10.0)
[2018-03-09 08:13] LABS: CHLORIDE 107 mmol/L (98-107); POTASSIUM 3.9 mmol/L (3.5-5.1); SODIUM 140 mmol/L (136-145)
[2018-03-09 08:21] LABS: ALBUMIN 2.7 g/dl (3.4-5.0); ALK PHOS 88 U/L (45-117); ANION GAP 5 (8-16); BILIRUBIN,TOTAL 0.5 mg/dL (0.2-1.0); BLOOD UREA NITROGEN 7 mg/dL (7-18); CALCIUM 8.1 mg/dL (8.5-10.1); CO2 28 mmol/L (21-32); CREATININE 0.7 mg/dL (0.7-1.3); GLUCOSE,RANDOM 103 mg/dL (74-106); SGOT/AST 23 U/L (15-37); SGPT/ALT 30 U/L (12-78); TOT PROT 5.9 g/dl (6.4-8.2)
--- NOTE | 2018-03-09 09:17 | CONSULT ---
- Consultation REQUESTING PROVIDER: Ap OGDEN CONSULT REQUEST: We have been asked to surgically evaluate this patient for a post traumatic soft tissue mass of the RLE PCP:Madyson Rodrigues HISTORY OF PRESENT ILLNESS: CTSP for evaluation and management of a post traumatic soft tissue mass of the RLE; blunt trauma 03/03/18 to the RLE; he was seen in the ER and given PO antibiotics; he had continued pain and came back to the ER for further evaluation; he has pain and swelling and subjective fever. PMHx: none PSHx: none Home Medications Medication Instructions Recorded Cephalexin [Keflex] 500 mg PO QID 10 Days #40 capsule 03/05/18 Ibuprofen [Motrin -] 600 mg PO TID #30 tablet 03/05/18 Sulfamethoxazole/Trimethoprim 1 tab PO BID #20 tablet 03/05/18 [Bactrim Ds -] Allergies Allergy/AdvReac Type Severity Reaction Status Date / Time No Known Allergies Allergy Verified 03/07/18 18:43 REVIEW OF SYSTEMS: CONSTITUTIONAL: Present: fever, chills, generalized weakness, malaise, CARDIOVASCULAR: Absent: chest pain, syncope, palpitations, irregular heart rate, lightheadedness , peripheral edema RESPIRATORY: Absent: cough, shortness of breath, dyspnea with exertion, wheezing, stridor, hemoptysis GASTROINTESTINAL: Absent: abdominal pain, abdominal distension, nausea, vomiting, diarrhea, constipation, melena, hematochezia GENITOURINARY: Absent: dysuria, frequency, urgency, hesitancy, hematuria, flank pain, genital pain MUSCULOSKELETAL: Present: myalgia, arthralgia, SKIN: Absent: rash, itching, pallor HEMATOLOGIC/IMMUNOLOGIC: Absent: easy bleeding, easy bruising, lymphadenopathy NEUROLOGIC: Absent: headache, focal weakness, paresthesias, dizziness, unsteady gait, seizure, mental status changes, bladder or bowel incontinence PSYCHIATRIC: Absent: anxiety, depression, suicidal or homicidal ideation, hallucinations. PHYSICAL EXAM: GENERAL: Awake, alert, and fully oriented, in no acute distress. HEAD: Normal with no signs of trauma. MUSCULOSKELETAL: Normal ROM at all joints. No bony deformities; ttp and ballotable mass RLE over the anterior tibia; erythema is present. UPPER EXTREMITIES: 2+ pulses, warm, well-perfused. No cyanosis. Cap refill <2 seconds. No peripheral edema. LOWER EXTREMITIES: 2+ pulses, warm, well-perfused. No calf tenderness. No peripheral edema. NEUROLOGICAL: Normal speech, gait not observed. PSYCH: Cooperative. Good eye contact. Appropriate mood and affect. SKIN: Warm, dry, normal turgor, no rashes or lesions noted e/f RLE area of trauma Vital Signs Temperature 97.9 F 03/09/18 05:50 Pulse Rate 77 03/09/18 05:50 Respiratory Rate 18 03/09/18 05:50 Blood Pressure 102/63 03/09/18 05:50 O2 Sat by Pulse Oximetry (%) 99 03/08/18 21:00 Lab Results WBC 9.4 K/mm3 (4.0-10.0) 03/09/18 07:30 RBC 4.01 M/mm3 (4.00-5.60) 03/09/18 07:30 Hgb 12.6 GM/dL (11.7-16.9) 03/09/18 07:30 Hct 36.3 % (35.4-49) 03/09/18 07:30 MCV 90.6 fl (80-96) 03/09/18 07:30 MCHC 34.7 g/dl (32.0-35.9) 03/09/18 07:30 RDW 12.5 % (11.9-15.9) 03/09/18 07:30 Plt Count 321 K/MM3 (134-434) 03/09/18 07:30 Sodium 140 mmol/L (136-145) 03/09/18 07:30 Potassium 3.9 mmol/L (3.5-5.1) 03/09/18 07:30 Chloride 107 mmol/L (98-107) 03/09/18 07:30 Carbon Dioxide 28 mmol/L (21-32) D 03/09/18 07:30 Anion Gap 5 (8-16) L 03/09/18 07:30 BUN 7 mg/dL (7-18) 03/09/18 07:30 Creatinine 0.7 mg/dL (0.7-1.3) 03/09/18 07:30 Random Glucose 103 mg/dL (74-106) 03/09/18 07:30 Calcium 8.1 mg/dL (8.5-10.1) L 03/09/18 07:30 labs reviewed IMP:infected hematoma vs. abscess RLE PLAN: I and D; r/b/t/a's d/w the patient and informed consent obtained; d/w him in Slovak and Korean; he understand the wound be left open to heal by secondary intention.. Anthony Freire MD FACS
[2018-03-09] MEDS: HEPARIN NA (PORCINE) 5,000 UNITS/ML 1ML VIAL SQ SCH ×2 (09:19→21:12)
[2018-03-09] MEDS: SODIUM CHLORIDE 1,000 ML IV SCH ×2 (10:50→20:55)
--- NOTE | 2018-03-09 14:00 | PN ---
Progress Note, Physician History of Present Illness: patient seen and examined at bedside. erythema improved today. afebrile. for I& D per surgery. - Current Medication List Current Medications: Active Medications Acetaminophen (Tylenol -) 650 mg PO Q6H PRN PRN Reason: MODERATE PAIN Last Admin: 03/08/18 23:39 Dose: 650 mg Heparin Sodium (Porcine) (Heparin -) 5,000 unit SQ BID [facility] Last Admin: 03/09/18 09:19 Dose: 5,000 unit Ceftriaxone Sodium 2 gm/ (Dextrose) 100 mls @ 200 mls/hr IVPB HS SAWYER PRN Reason: Protocol Last Admin: 03/08/18 21:15 Dose: 200 mls/hr Sodium Chloride (Normal Saline -) 1,000 mls @ 83 mls/hr IV ASDIR SAWYER Last Admin: 03/09/18 10:50 Dose: 83 mls/hr Vancomycin HCl 1,000 mg/ (Dextrose) 250 mls @ 166.667 mls/hr IVPB Q12H SAWYER PRN Reason: Protocol Last Admin: 03/09/18 03:05 Dose: 166.667 mls/hr - Objective Vital Signs: Vital Signs Temperature 98.1 F 03/09/18 09:00 Pulse Rate 75 03/09/18 09:00 Respiratory Rate 20 03/09/18 09:00 Blood Pressure 122/77 03/09/18 09:00 O2 Sat by Pulse Oximetry (%) 99 03/09/18 09:00 Neck: Yes: Supple, Trachea Midline Cardiovascular: Yes: Regular Rate and Rhythm, S1, S2. No: JVD, Gallop, Murmur, Rub Respiratory: Yes: Regular, CTA Bilaterally Gastrointestinal: Yes: Normal Bowel Sounds, Soft Extremities: Yes: Other (erythema and swelling of the RLE is improved today. Swelling and erythema) Neurological: Yes: Alert, Oriented Psychiatric: Yes: Alert, Oriented Labs: CBC, BMP 03/09/18 07:30 03/09/18 07:30 Assessment/Plan The patient is a 27 yo m w/ no PMH admitted for RLE cellulitis and likely abscess. #cellulitis and abscess -patient improved on ABX -BCx NGTD -will cover for gram positives and MRSA -c/w Ceftriaxone 1g daily -c/w Vancomycin 1g daily -patient is for I&D per surgery. -will follow -Case d/w Dr. Singh
[2018-03-09] MEDS ORDERED: MIDAZOLAM HCL 2 MG/2 ML SINGLE DOSE VIAL ONE (14:05)
[2018-03-09] MEDS ORDERED: fentaNYL CITRATE 250 MCG/5 ML VIAL ONE (14:05)
[2018-03-09] MEDS ORDERED: PROPOFOL 20 ML ONE (14:05)
[2018-03-09] MEDS ORDERED: SUCCINYLCHOLINE CHLORIDE 200 MG/10 ML VIAL ONE (14:06)
[2018-03-09] MEDS ORDERED: SEVOFLURANE 250 ML BTL ONE (14:21)
[2018-03-09] MEDS ORDERED: VANCOMYCIN 1,000 MG VIAL (RESTRICTED TO ID ONLY) ONE (14:26)
[2018-03-09] MEDS ORDERED: VANCOMYCIN 1,000 MG VIAL (RESTRICTED TO ID ONLY) IVPB ONE (14:30)
[2018-03-09] MEDS ORDERED: DEXAMETHASONE SOD PHOSPHATE 4 MG/1 ML VIAL ONE (14:42)
--- NOTE | 2018-03-09 14:46 | PN ---
Progress Note (short form) - Note Progress Note: Subjective: The patient was seen and examined pre-op, he has complaints of right leg pain. Current Medications Generic Name Dose Route Start Last Admin Trade Name Fito PRN Reason Stop Dose Admin Acetaminophen 650 mg 03/08/18 14:52 03/08/18 23:39 Tylenol - PO 650 mg Q6H PRN Administration MODERATE PAIN Heparin Sodium (Porcine) 5,000 unit 03/08/18 22:00 03/09/18 09:19 Heparin - SQ 5,000 unit BID SAWYER Administration Ceftriaxone Sodium 2 gm/ 100 mls @ 200 mls/hr 03/08/18 22:00 03/08/18 21:15 Dextrose IVPB 200 mls/hr HS SAWYER Administration Protocol Sodium Chloride 1,000 mls @ 83 mls/hr 03/08/18 15:00 03/09/18 10:50 Normal Saline - IV 83 mls/hr ASDIR SAWYER Administration Vancomycin HCl 1,000 mg/ 250 mls @ 166.667 mls/hr 03/09/18 04:00 03/09/18 03: 05 Dextrose IVPB 166.667 mls/hr Q12H SAWYER Administration Protocol Objective: Vital Signs Period Temp Pulse Resp BP Sys/De Luna Pulse Ox Last 24 Hr 97.9 F-98.5 F 74-80 18-20 102-122/52-77 99-99 Physical Exam: General: NAD, A&Ox3 Lungs: CTA bilaterally Heart: RRR, S1S2 Abd: Soft, non-tender, non-distended. Normoactive bowel sounds Ext: Right lower extremity with mid lawrence erythema, edema. Some area of fluctance and induration, +tenderness. Erythema and edema extending down to foot. 2+ DP/PT bilaterally Neuro: CN 2-12 intact CBCD WBC 9.4 K/mm3 (4.0-10.0) 03/09/18 07:30 RBC 4.01 M/mm3 (4.00-5.60) 03/09/18 07:30 Hgb 12.6 GM/dL (11.7-16.9) 03/09/18 07:30 Hct 36.3 % (35.4-49) 03/09/18 07:30 MCV 90.6 fl (80-96) 03/09/18 07:30 MCHC 34.7 g/dl (32.0-35.9) 03/09/18 07:30 RDW 12.5 % (11.9-15.9) 03/09/18 07:30 Plt Count 321 K/MM3 (134-434) 03/09/18 07:30 MPV 8.0 fl (7.5-11.1) 03/09/18 07:30 CMP Sodium 140 mmol/L (136-145) 03/09/18 07:30 Potassium 3.9 mmol/L (3.5-5.1) 03/09/18 07:30 Chloride 107 mmol/L (98-107) 03/09/18 07:30 Carbon Dioxide 28 mmol/L (21-32) D 03/09/18 07:30 Anion Gap 5 (8-16) L 03/09/18 07:30 BUN 7 mg/dL (7-18) 03/09/18 07:30 Creatinine 0.7 mg/dL (0.7-1.3) 03/09/18 07:30 Creat Clearance w eGFR > 60 (>60) 03/09/18 07:30 Random Glucose 103 mg/dL (74-106) 03/09/18 07:30 Calcium 8.1 mg/dL (8.5-10.1) L 03/09/18 07:30 Total Bilirubin 0.5 mg/dL (0.2-1.0) D 03/09/18 07:30 AST 23 U/L (15-37) 03/09/18 07:30 ALT 30 U/L (12-78) 03/09/18 07:30 Alkaline Phosphatase 88 U/L (45-117) 03/09/18 07:30 Total Protein 5.9 g/dl (6.4-8.2) L 03/09/18 07:30 Albumin 2.7 g/dl (3.4-5.0) L D 03/09/18 07:30 Microbiology 03/07/18 19:07 Blood - Peripheral Venous Blood Culture - Preliminary NO GROWTH OBTAINED AFTER 24 HOURS, INCUBATION TO CONTINUE FOR 4 DAYS. 03/07/18 19:07 Blood - Peripheral Venous Blood Culture - Preliminary NO GROWTH OBTAINED AFTER 24 HOURS, INCUBATION TO CONTINUE FOR 4 DAYS. Assessment: This is a 27 year old male with no significant PMHx who presented to the ED with pain to right lawrence s/p trauma on 03/03/18 Plan: 1) RLE cellulitis with infected hematoma vs. abscess - For I&D in OR today - Pain management - Continue empiric Vancomycin - Continue empiric Ceftriaxone - Blood cultures with NGTD - Appreciate surgery consult - Appreciate ID consult 2) F/E/N: - NPO for surgery today - Monitor electrolytes 3) Prophylaxis: - Hold all chemical DVT prophylaxis for surgery today 4) Dispo: - Requires continued inpatient care CODE STATUS: FULL CODE Visit type - Emergency Visit Emergency Visit: Yes ED Registration Date: 03/07/18 Care time: The patient presented to the Emergency Department on the above date and was hospitalized for further evaluation of their emergent condition. - New Patient This patient is new to me today: Yes Date on this admission: 03/09/18 - Critical Care Critical Care patient: No
[2018-03-09] MEDS ORDERED: oxyCODONE HCL 5 MG TABLET PO PRN (15:00)
--- NOTE | 2018-03-09 16:05 | PN ---
Teaching Attending Note Name of Resident: Sterling Suero ATTENDING PHYSICIAN STATEMENT I saw and evaluated the patient. I reviewed the resident's note and discussed the case with the resident. I agree with the resident's findings and plan as documented. SUBJECTIVE: Seen in PACU S/P I&D R LE soft tissue collection No c/o pain Temps, WBC down OBJECTIVE: Post op dressing in place R LE ASSESSMENT AND PLAN: S/P I&D R LE soft tissue collection R/O infected hematoma v. abscess Await c/s Continue empiric vancomycin/ceftriaxone
[2018-03-09] MEDS ORDERED: DEXTROSE 5%-WATER 100 ML IVPB ONE (20:56)
[2018-03-09] MEDS: oxyCODONE HCL 5 MG TABLET PO PRN (21:13)
[2018-03-09] MEDS: CEFTRIAXONE 2 GM in DEXTROSE 5%-WATER 100 ML IVPB SCH (21:13)
[2018-03-10] MEDS: VANCOMYCIN 1,000 MG in DEXTROSE 5%-WATER - 250 ML IVPB SCH ×2 (02:00→15:36)
[2018-03-10 07:16] LABS: HEMOGLOBIN 12.5 GM/dL (11.7-16.9); MCH 31.5 pg (25.7-33.7); MCHC 34.7 g/dl (32.0-35.9); MEAN PLT VOLUME 7.6 fl (7.5-11.1); PLATELET COUNT 362 K/MM3 (134-434); RBC 3.96 M/mm3 (4.00-5.60); RDW 12.1 % (11.9-15.9); WHITE BLOOD COUNT 8.6 K/mm3 (4.0-10.0)
[2018-03-10 07:47] LABS: CHLORIDE 105 mmol/L (98-107); SODIUM 140 mmol/L (136-145)
[2018-03-10 07:57] LABS: ALBUMIN 2.6 g/dl (3.4-5.0); ALK PHOS 86 U/L (45-117); ANION GAP 7 (8-16); BILIRUBIN,TOTAL 0.9 mg/dL (0.2-1.0); BLOOD UREA NITROGEN 7 mg/dL (7-18); CALCIUM 8.1 mg/dL (8.5-10.1); CO2 28 mmol/L (21-32); CREATININE 0.8 mg/dL (0.7-1.3); GLUCOSE,RANDOM 93 mg/dL (74-106); SGOT/AST 30 U/L (15-37); SGPT/ALT 38 U/L (12-78)
[2018-03-10] MEDS: HEPARIN NA (PORCINE) 5,000 UNITS/ML 1ML VIAL SQ SCH ×2 (09:23→22:11)
[2018-03-10] MEDS: SODIUM CHLORIDE 1,000 ML IV SCH ×2 (10:19→15:45)
--- NOTE | 2018-03-10 10:29 | PN ---
Progress Note (short form) - Note Progress Note: Subjective: The patient was seen and examined at the bedside, he has complaints of right leg pain Current Medications Generic Name Dose Route Start Last Admin Trade Name Fito PRN Reason Stop Dose Admin Acetaminophen 650 mg 03/08/18 14:52 03/08/18 23:39 Tylenol - PO 650 mg Q6H PRN Administration MODERATE PAIN Heparin Sodium (Porcine) 5,000 unit 03/08/18 22:00 03/09/18 09:19 Heparin - SQ 5,000 unit BID SAWYER Administration Ceftriaxone Sodium 2 gm/ 100 mls @ 200 mls/hr 03/08/18 22:00 03/08/18 21:15 Dextrose IVPB 200 mls/hr HS SAWYER Administration Protocol Sodium Chloride 1,000 mls @ 83 mls/hr 03/08/18 15:00 03/09/18 10:50 Normal Saline - IV 83 mls/hr ASDIR SAWYER Administration Vancomycin HCl 1,000 mg/ 250 mls @ 166.667 mls/hr 03/09/18 04:00 03/09/18 03: 05 Dextrose IVPB 166.667 mls/hr Q12H SAWYER Administration Protocol Objective: Vital Signs Period Temp Pulse Resp BP Sys/De Luna Pulse Ox Last 24 Hr 97.8 F-99 F 66-90 16-21 100-126/48-68 98-99 Physical Exam: General: NAD, A&Ox3 Lungs: CTA bilaterally Heart: RRR, S1S2 Abd: Soft, non-tender, non-distended. Normoactive bowel sounds Ext: Right lower extremity with dressing, c/d/i. Erythema/edema extending to foot. 2+ DP/PT bilaterally Neuro: CN 2-12 intact CBCD WBC 8.6 K/mm3 (4.0-10.0) 03/10/18 06:32 RBC 3.96 M/mm3 (4.00-5.60) L 03/10/18 06:32 Hgb 12.5 GM/dL (11.7-16.9) 03/10/18 06:32 Hct 36.0 % (35.4-49) 03/10/18 06:32 MCV 91.0 fl (80-96) 03/10/18 06:32 MCHC 34.7 g/dl (32.0-35.9) 03/10/18 06:32 RDW 12.1 % (11.9-15.9) 03/10/18 06:32 Plt Count 362 K/MM3 (134-434) 03/10/18 06:32 MPV 7.6 fl (7.5-11.1) 03/10/18 06:32 CMP Sodium 140 mmol/L (136-145) 03/10/18 06:32 Potassium 4.0 mmol/L (3.5-5.1) 03/10/18 06:32 Chloride 105 mmol/L (98-107) 03/10/18 06:32 Carbon Dioxide 28 mmol/L (21-32) 03/10/18 06:32 Anion Gap 7 (8-16) L 03/10/18 06:32 BUN 7 mg/dL (7-18) 03/10/18 06:32 Creatinine 0.8 mg/dL (0.7-1.3) 03/10/18 06:32 Creat Clearance w eGFR > 60 (>60) 03/10/18 06:32 Random Glucose 93 mg/dL (74-106) 03/10/18 06:32 Calcium 8.1 mg/dL (8.5-10.1) L 03/10/18 06:32 Total Bilirubin 0.9 mg/dL (0.2-1.0) D 03/10/18 06:32 AST 30 U/L (15-37) D 03/10/18 06:32 ALT 38 U/L (12-78) D 03/10/18 06:32 Alkaline Phosphatase 86 U/L (45-117) 03/10/18 06:32 Total Protein 6.0 g/dl (6.4-8.2) L 03/10/18 06:32 Albumin 2.6 g/dl (3.4-5.0) L 03/10/18 06:32 Microbiology 03/07/18 19:07 Blood - Peripheral Venous Blood Culture - Preliminary NO GROWTH OBTAINED AFTER 48 HOURS, INCUBATION TO CONTINUE FOR 3 DAYS. 03/07/18 19:07 Blood - Peripheral Venous Blood Culture - Preliminary NO GROWTH OBTAINED AFTER 48 HOURS, INCUBATION TO CONTINUE FOR 3 DAYS. Assessment: This is a 27 year old male with no significant PMHx who presented to the ED with pain to right lawrence s/p trauma on 03/03/18 Plan: 1) RLE cellulitis with infected hematoma vs. abscess - S/p I&D on 03/09; awaiting wound culture results - Pain management - Continue empiric Vancomycin - Continue empiric Ceftriaxone - Blood cultures with NGTD - Appreciate surgery consult - Appreciate ID consult 2) F/E/N: - Regular diet - Monitor electrolytes 3) Prophylaxis: - Heparin 5,000u sq bid (dosing per surgery) - OOB ambulating 4) Dispo: - Requires continued inpatient care CODE STATUS: FULL CODE Visit type - Emergency Visit Emergency Visit: Yes ED Registration Date: 03/07/18 Care time: The patient presented to the Emergency Department on the above date and was hospitalized for further evaluation of their emergent condition. - New Patient This patient is new to me today: No - Critical Care Critical Care patient: No
--- NOTE | 2018-03-10 11:14 | OP ---
Operative Note - Note: Operative Date: 03/09/18 Pre-Operative Diagnosis: abscess RLE Operation: I and D abscess RLE Findings: abscess; ? residual hematoma Surgeon: Anthony Freire Specimens Removed: abscess contents sent for C and S Estimated Blood Loss (mls): 10 Drains & Tubes with Location: packing
[2018-03-10] MEDS: oxyCODONE HCL 5 MG TABLET PO PRN (11:52)
--- NOTE | 2018-03-10 11:52 | PN ---
Progress Note (short form) - Note Progress Note: Attending Surgeon POD#1 no c/o VSS AF incsion RLE-open and no d/c; sts and erythema and edema decreased WBC-nl OR cultures pending IMP: improved PLAN-LWC rendered and orders for same placed; cont. IVABS; leg elevation. Anthony Freire Md FACS
[2018-03-10] MEDS ORDERED: PT OWN MED DRAWER 7, Y5N ONE (14:43)
[2018-03-10] MEDS ORDERED: DEXTROSE 5%-WATER 100 ML IVPB ONE (21:41)
[2018-03-10] MEDS: CEFTRIAXONE 2 GM in DEXTROSE 5%-WATER 100 ML IVPB SCH (22:11)
[2018-03-11] MEDS: SODIUM CHLORIDE 1,000 ML IV SCH ×2 (01:37→18:14)
[2018-03-11] MEDS: VANCOMYCIN 1,000 MG in DEXTROSE 5%-WATER - 250 ML IVPB SCH ×2 (02:26→15:19)
[2018-03-11] MEDS: ACETAMINOPHEN 325 MG TABLET (FP) PO PRN ×2 (06:10→22:02)
[2018-03-11] MEDS: HEPARIN NA (PORCINE) 5,000 UNITS/ML 1ML VIAL SQ SCH ×2 (10:16→21:52)
--- NOTE | 2018-03-11 12:23 | PN ---
Progress Note (short form) - Note Progress Note: Subjective: The patient was seen and examined at the bedside, he has no complaints at this time Current Medications Generic Name Dose Route Start Last Admin Trade Name Fito PRN Reason Stop Dose Admin Acetaminophen 650 mg 03/09/18 15:32 03/11/18 06:10 Tylenol - PO 650 mg Q6H PRN Administration MODERATE PAIN Heparin Sodium (Porcine) 5,000 unit 03/09/18 22:00 03/11/18 10:16 Heparin - SQ 5,000 unit BID SAWYER Administration Ceftriaxone Sodium 2 gm/ 100 mls @ 200 mls/hr 03/09/18 22:00 03/10/18 22:11 Dextrose IVPB 200 mls/hr HS SAWYER Administration Protocol Sodium Chloride 1,000 mls @ 83 mls/hr 03/09/18 15:32 03/11/18 01:37 Normal Saline - IV 83 mls/hr ASDIR SAWYER Administration Vancomycin HCl 1,000 mg/ 250 mls @ 150 mls/hr 03/10/18 03:00 03/11/18 02:26 Dextrose IVPB 150 mls/hr BID@0300,1500 SAWYER Administration Protocol Oxycodone HCl 5 mg 03/09/18 15:00 Roxicodone - PO Q6H PRN PAIN LEVEL 1-5 Oxycodone HCl 10 mg 03/09/18 15:00 03/10/18 11:52 Roxicodone - PO 10 mg Q6H PRN Administration PAIN LEVEL 6-10 Objective: Vital Signs Period Temp Pulse Resp BP Sys/De Luna Pulse Ox Last 24 Hr 98.2 F-98.6 F 64-76 18-20 111-132/58-72 97-97 Physical Exam: General: NAD, A&Ox3 Lungs: CTA bilaterally Heart: RRR, S1S2 Abd: Soft, non-tender, non-distended. Normoactive bowel sounds Ext: Right lower extremity with dressing, c/d/i. Erythema/edema extending to foot. 2+ DP/PT bilaterally Neuro: CN 2-12 intact CBCD WBC 8.6 K/mm3 (4.0-10.0) 03/10/18 06:32 RBC 3.96 M/mm3 (4.00-5.60) L 03/10/18 06:32 Hgb 12.5 GM/dL (11.7-16.9) 03/10/18 06:32 Hct 36.0 % (35.4-49) 03/10/18 06:32 MCV 91.0 fl (80-96) 03/10/18 06:32 MCHC 34.7 g/dl (32.0-35.9) 03/10/18 06:32 RDW 12.1 % (11.9-15.9) 03/10/18 06:32 Plt Count 362 K/MM3 (134-434) 03/10/18 06:32 MPV 7.6 fl (7.5-11.1) 03/10/18 06:32 CMP Sodium 140 mmol/L (136-145) 03/10/18 06:32 Potassium 4.0 mmol/L (3.5-5.1) 03/10/18 06:32 Chloride 105 mmol/L (98-107) 03/10/18 06:32 Carbon Dioxide 28 mmol/L (21-32) 03/10/18 06:32 Anion Gap 7 (8-16) L 03/10/18 06:32 BUN 7 mg/dL (7-18) 03/10/18 06:32 Creatinine 0.8 mg/dL (0.7-1.3) 03/10/18 06:32 Creat Clearance w eGFR > 60 (>60) 03/10/18 06:32 Random Glucose 93 mg/dL (74-106) 03/10/18 06:32 Calcium 8.1 mg/dL (8.5-10.1) L 03/10/18 06:32 Total Bilirubin 0.9 mg/dL (0.2-1.0) D 03/10/18 06:32 AST 30 U/L (15-37) D 03/10/18 06:32 ALT 38 U/L (12-78) D 03/10/18 06:32 Alkaline Phosphatase 86 U/L (45-117) 03/10/18 06:32 Total Protein 6.0 g/dl (6.4-8.2) L 03/10/18 06:32 Albumin 2.6 g/dl (3.4-5.0) L 03/10/18 06:32 Microbiology 03/09/18 14:20 Abscess Gram Stain - Final 03/09/18 14:20 Abscess Wound Culture - Preliminary Staphylococcus Latex Coag Pos 03/07/18 19:07 Blood - Peripheral Venous Blood Culture - Preliminary NO GROWTH OBTAINED AFTER 72 HOURS, INCUBATION TO CONTINUE FOR 2 DAYS. 03/07/18 19:07 Blood - Peripheral Venous Blood Culture - Preliminary NO GROWTH OBTAINED AFTER 72 HOURS, INCUBATION TO CONTINUE FOR 2 DAYS. Assessment: This is a 27 year old male with no significant PMHx who presented to the ED with pain to right lawrence s/p trauma on 03/03/18 Plan: 1) RLE cellulitis with infected hematoma vs. abscess - S/p I&D on 03/09; awaiting wound culture results, prelim staphylococcus latex coag positive - Pain management - Continue empiric Vancomycin - Continue empiric Ceftriaxone - Blood cultures with NGTD - Dressing changes per surgery - Appreciate surgery consult - Appreciate ID consult 2) F/E/N: - Regular diet - Monitor electrolytes 3) Prophylaxis: - Heparin 5,000u sq bid (dosing per surgery) - OOB ambulating 4) Dispo: - Requires continued inpatient care CODE STATUS: FULL CODE Visit type - Emergency Visit Emergency Visit: Yes ED Registration Date: 03/07/18 Care time: The patient presented to the Emergency Department on the above date and was hospitalized for further evaluation of their emergent condition. - New Patient This patient is new to me today: No - Critical Care Critical Care patient: No
[2018-03-11] MEDS ORDERED: PT OWN MED DRAWER 7, Y5N ONE (13:47)
[2018-03-11] MEDS: oxyCODONE HCL 5 MG TABLET PO PRN (13:50)
[2018-03-11] MEDS ORDERED: DEXTROSE 5%-WATER 100 ML IVPB ONE (21:32)
[2018-03-11] MEDS: CEFTRIAXONE 2 GM in DEXTROSE 5%-WATER 100 ML IVPB SCH (21:52)
[2018-03-12] MEDS: VANCOMYCIN 1,000 MG in DEXTROSE 5%-WATER - 250 ML IVPB SCH ×2 (03:51→14:07)
[2018-03-12] MEDS: SODIUM CHLORIDE 1,000 ML IV SCH (08:22)
[2018-03-12] MEDS: HEPARIN NA (PORCINE) 5,000 UNITS/ML 1ML VIAL SQ SCH ×2 (09:11→09:18)
--- NOTE | 2018-03-12 09:24 | PN ---
Progress Note (short form) - Note Progress Note: Subjective: The patient was seen and examined at the bedside, he has complaints of right leg pain when he ambulates F/u PT for recommendations regarding crutches vs. cane Current Medications Generic Name Dose Route Start Last Admin Trade Name Freq PRN Reason Stop Dose Admin Acetaminophen 650 mg 03/09/18 15:32 03/11/18 22:02 Tylenol - PO 650 mg Q6H PRN Administration MODERATE PAIN Heparin Sodium (Porcine) 5,000 unit 03/09/18 22:00 03/12/18 09:18 Heparin - SQ 5,000 unit BID SAWYER Administration Ceftriaxone Sodium 2 gm/ 100 mls @ 200 mls/hr 03/09/18 22:00 03/11/18 21:52 Dextrose IVPB 200 mls/hr HS SAWYER Administration Protocol Vancomycin HCl 1,000 mg/ 250 mls @ 150 mls/hr 03/10/18 03:00 03/12/18 03:51 Dextrose IVPB 150 mls/hr BID@0300,1500 SAWYER Administration Protocol Oxycodone HCl 5 mg 03/09/18 15:00 Roxicodone - PO Q6H PRN PAIN LEVEL 1-5 Oxycodone HCl 10 mg 03/09/18 15:00 03/11/18 13:50 Roxicodone - PO 10 mg Q6H PRN Administration PAIN LEVEL 6-10 Objective: Vital Signs Period Temp Pulse Resp BP Sys/De Luna Pulse Ox Last 24 Hr 97.9 F-98.5 F 65-76 20-20 113-132/61-73 97-97 Physical Exam: General: NAD, A&Ox3 Lungs: CTA bilaterally Heart: RRR, S1S2 Abd: Soft, non-tender, non-distended. Normoactive bowel sounds Ext: Right lower extremity with dressing, c/d/i. Edema extending to foot. 2+ DP/ PT bilaterally Neuro: CN 2-12 intact CBCD WBC 8.6 K/mm3 (4.0-10.0) 03/10/18 06:32 RBC 3.96 M/mm3 (4.00-5.60) L 03/10/18 06:32 Hgb 12.5 GM/dL (11.7-16.9) 03/10/18 06:32 Hct 36.0 % (35.4-49) 03/10/18 06:32 MCV 91.0 fl (80-96) 03/10/18 06:32 MCHC 34.7 g/dl (32.0-35.9) 03/10/18 06:32 RDW 12.1 % (11.9-15.9) 03/10/18 06:32 Plt Count 362 K/MM3 (134-434) 03/10/18 06:32 MPV 7.6 fl (7.5-11.1) 03/10/18 06:32 CMP Sodium 140 mmol/L (136-145) 03/10/18 06:32 Potassium 4.0 mmol/L (3.5-5.1) 03/10/18 06:32 Chloride 105 mmol/L (98-107) 03/10/18 06:32 Carbon Dioxide 28 mmol/L (21-32) 03/10/18 06:32 Anion Gap 7 (8-16) L 03/10/18 06:32 BUN 7 mg/dL (7-18) 03/10/18 06:32 Creatinine 0.8 mg/dL (0.7-1.3) 03/10/18 06:32 Creat Clearance w eGFR > 60 (>60) 03/10/18 06:32 Random Glucose 93 mg/dL (74-106) 03/10/18 06:32 Calcium 8.1 mg/dL (8.5-10.1) L 03/10/18 06:32 Total Bilirubin 0.9 mg/dL (0.2-1.0) D 03/10/18 06:32 AST 30 U/L (15-37) D 03/10/18 06:32 ALT 38 U/L (12-78) D 03/10/18 06:32 Alkaline Phosphatase 86 U/L (45-117) 03/10/18 06:32 Total Protein 6.0 g/dl (6.4-8.2) L 03/10/18 06:32 Albumin 2.6 g/dl (3.4-5.0) L 03/10/18 06:32 Microbiology 03/07/18 19:07 Blood - Peripheral Venous Blood Culture - Preliminary NO GROWTH OBTAINED AFTER 96 HOURS, INCUBATION TO CONTINUE FOR 1 DAYS. 03/07/18 19:07 Blood - Peripheral Venous Blood Culture - Preliminary NO GROWTH OBTAINED AFTER 96 HOURS, INCUBATION TO CONTINUE FOR 1 DAYS. 03/09/18 14:20 Abscess Gram Stain - Final 03/09/18 14:20 Abscess Wound Culture - Preliminary Staphylococcus Latex Coag Pos Assessment: This is a 27 year old male with no significant PMHx who presented to the ED with pain to right lawrence s/p trauma on 03/03/18 Plan: 1) RLE cellulitis with infected hematoma vs. abscess - S/p I&D on 03/09; awaiting wound culture results, prelim staphylococcus latex coag positive - Pain management - Continue empiric Vancomycin - Continue empiric Ceftriaxone - Blood cultures with NGTD - Dressing changes per surgery - Appreciate surgery consult - Appreciate ID consult 2) F/E/N: - Regular diet - Monitor electrolytes 3) Prophylaxis: - Heparin 5,000u sq bid (dosing per surgery) - OOB ambulating 4) Dispo: - Requires continued inpatient care CODE STATUS: FULL CODE Visit type - Emergency Visit Emergency Visit: Yes ED Registration Date: 03/07/18 Care time: The patient presented to the Emergency Department on the above date and was hospitalized for further evaluation of their emergent condition. - New Patient This patient is new to me today: No - Critical Care Critical Care patient: No
--- NOTE | 2018-03-12 09:30 | PN ---
Progress Note (short form) - Note Progress Note: Attending Surgeon POD #3 C/O pain VSS AF wound-open and granulating; erythema and sts decreased C and S final pending IMP: improved PLAN: Continue LWC; OOB ambulating continue present tx. Anthony Freire MD FACS
[2018-03-12] MEDS: oxyCODONE HCL 5 MG TABLET PO PRN (09:57)
[2018-03-12 15:32] VITALS: BP 141/75; PULSE 73; TEMP 97.9
--- NOTE | 2018-03-12 16:03 | PN ---
Progress Note, Physician History of Present Illness: ID follow up patient seen and examined at bedside. afebrile. s/p I&D. Wound seen clean, dry with packing in place. Leg shows marked improvement from admission. - Current Medication List Current Medications: Active Medications Acetaminophen (Tylenol -) 650 mg PO Q6H PRN PRN Reason: MODERATE PAIN Last Admin: 03/11/18 22:02 Dose: 650 mg Heparin Sodium (Porcine) (Heparin -) 5,000 unit SQ BID SAWYER Last Admin: 03/12/18 09:18 Dose: 5,000 unit Ceftriaxone Sodium 2 gm/ (Dextrose) 100 mls @ 200 mls/hr IVPB HS SAWYER PRN Reason: Protocol Last Admin: 03/11/18 21:52 Dose: 200 mls/hr Vancomycin HCl 1,000 mg/ (Dextrose) 250 mls @ 150 mls/hr IVPB BID@0300,1500 SAWYER PRN Reason: Protocol Last Admin: 03/12/18 14:07 Dose: 150 mls/hr Oxycodone HCl (Roxicodone -) 5 mg PO Q6H PRN PRN Reason: PAIN LEVEL 1-5 Oxycodone HCl (Roxicodone -) 10 mg PO Q6H PRN PRN Reason: PAIN LEVEL 6-10 Last Admin: 03/12/18 09:57 Dose: 10 mg - Objective Vital Signs: Vital Signs Temperature 97.9 F 03/12/18 15:29 Pulse Rate 73 03/12/18 15:29 Respiratory Rate 20 03/12/18 15:29 Blood Pressure 141/75 03/12/18 15:29 O2 Sat by Pulse Oximetry (%) 97 03/12/18 09:00 Constitutional: Yes: Well Nourished, No Distress, Calm HENT: Yes: Atraumatic, Normocephalic Cardiovascular: Yes: Regular Rate and Rhythm, S1, S2. No: JVD, Gallop, Murmur, Rub Respiratory: Yes: Regular, CTA Bilaterally Gastrointestinal: Yes: Normal Bowel Sounds, Soft Extremities: Yes: Other (RIght leg shows marked improvement from admission. Erythema and swelling greatly improved. site of incision seen clean and dry with packing in place. There is 2+ edema at the right foot.) Labs: CBC, BMP 03/10/18 06:32 03/10/18 06:32 Assessment/Plan The patient is a 27 yo m w/ no PMH admitted for RLE cellulitis and likely abscess. #cellulitis and abscess -patient improved on ABX -BCx NGTD -can change the patient to PO Augmentin 875 BID for an additional 7 days. -patient stable for discharge home from ID standpoint. -Case d/w Dr. Singh
--- NOTE | 2018-03-12 16:08 | PN ---
Teaching Attending Note Name of Resident: Sterling Suero ATTENDING PHYSICIAN STATEMENT I saw and evaluated the patient. I reviewed the resident's note and discussed the case with the resident. I agree with the resident's findings and plan as documented. SUBJECTIVE: OBJECTIVE: ASSESSMENT AND PLAN:
--- NOTE | 2018-03-12 16:36 | DS ---
Physical Examination Vital Signs: Vital Signs Temperature 97.9 F 03/12/18 15:29 Pulse Rate 73 03/12/18 15:29 Respiratory Rate 20 03/12/18 15:29 Blood Pressure 141/75 03/12/18 15:29 O2 Sat by Pulse Oximetry (%) 97 03/12/18 09:00 Labs: CBC, BMP 03/10/18 06:32 03/10/18 06:32 Discharge Summary Reason For Visit: CELLULITIS OF RIGHT LOWER LEG Current Active Problems Cellulitis of right lower leg (Acute) Condition: Stable - Instructions Diet, Activity, Other Instructions: Dr. Freire Discharge Instructions Dear ROSALBA BUNN, Wound care May remove dressing and shower. Replace with wet to dry, 1/2 inch iodoform packing. Cover with gauze, kerlix. Diet There are no dietary restrictions. Eat healthy, high-fiber foods. Drink 6 to 8 glasses of liquid each day. This will assist in keeping your bowels are regular. Pain management You may take Tylenol or acetaminophen or Ibuprofen (for example, Motrin, Advil etc.) Any pain prescription medication ordered should be taken as prescribed for moderate to severe pain. Call Dr. Freire for any of the following: Severe pain not relieved by medication Fever of 101 or higher Excessive bleeding or drainage on dressing Call the office at [phone] for a post operative appointment. Follow up with Dr Freire next week in his office on Monday, call to schedule an appointment. Referrals: Anthony Freire MD [Staff Physician] - (Please follow-up with Dr. Freire within 2-3 days for further management of your right leg wound) Tay Rico MD [Staff Physician] - 1 Week - Home Medications Comprehensive Discharge Medication List: Ambulatory Orders Ibuprofen [Motrin -] 600 mg PO TID #30 tablet 03/05/18 Acetaminophen [Tylenol .Regular Strength -] 650 mg PO Q6H PRN tablet 03/12/18 Amox-Tr/K Cl [Augmentin - 875Mg Tablet] 1 tab PO BID #14 tablet 03/12/18 Polyhexam Biguan/Gauze Bandage [Kerlix Amd Bandage 0.2% Roll] 1 each TP DAILY # 10 bandage 03/12/18
--- NOTE | 2018-03-19 17:59 | OP ---
DATE OF OPERATION: 03/10/2018 PREOPERATIVE DIAGNOSIS: Abscess right lower extremity. POSTOPERATIVE DIAGNOSIS: Abscess right lower extremity. OPERATIVE PROCEDURE: Incision and drainage of right lower extremity abscess. SURGEON: Anthony Freire M.D. CUSTOM HOME INSTALLER: Yvonne Barrera ANESTHESIA: General. OPERATIVE FINDINGS: There was a large abscess along the anterior aspect of the right distal tibia. There was some residual hematoma. The rest of the findings were unremarkable. DESCRIPTION OF PROCEDURE: Patient was placed on operating room table in the supine position. After the induction of general anesthesia, the patient's right lower extremity was prepped with Chloraprep and draped in sterile fashion, and a timeout was taken, and then incision made over the fluctuant wound area. Purulent drainage was sent for culture and sensitivity, and the wound was copiously irrigated with sterile saline and hydrogen peroxide in a 50:50 concentration. Hemostasis was secured with electrocautery, and then the wound packed with half-inch iodoform gauze followed by dry, sterile dressings. Patient was aroused from general anesthesia and then transferred to the postanesthesia care unit in stable condition awake and alert. Estimated blood loss 10 mL. Replacements: Crystalloid. Drains: Packing. Specimen: Purulent drainage sent to microbiology for culture and sensitivity. I, Even Mouna, was physically present in the operating room from the time the patient was placed on the operating room table until he was transferred to the post-anesthesia care unit in my accompaniment. MD SUYAPA Chang/[id number]
== END 2018-03-12 18:46 | disposition home or self-care (01) | DRG 720 ==
LOC: JER 18:21 → JERBED 22:28 → J5S 03-08 13:34
PROVIDERS: ADMIT Internal Medicine; ATTEND Registered Nurse
PROC: 0J9N0ZX Drainage of Right Lower Leg Subcutaneous Tissue and Fascia, Open Approach, Diagnostic (ICD-10-PCS; principal; 2018-03-09 13:30)
DX: A41.9 Sepsis, unspecified organism (principal); L03.115 Cellulitis of right lower limb; L02.415 Cutaneous abscess of right lower limb; R50.9 Fever, unspecified; D72.829 Elevated white blood cell count, unspecified
CPT/HCPCS: 36415; 73590-TC-RT-FY; 80048; 80053; 80307; 81003; 81015; 83036; 83605; 85025; 85027; 85651; 86140; 86593; 87040; 87070; 87186; 87205; 87389; 93971-TC; 97116-GP; 97161-GP; 99285-25; J1644; J7030

== ENCOUNTER 2024-02-29 14:18 | Emergency (ER) | payer OTHER ==
[2024-02-29 14:38] VITALS: BP 116/61; PULSE 81; RESP 18; TEMP 98.5; BMI 21.9
== END 2024-02-29 16:08 | disposition home or self-care (01) ==
LOC: JERFT 14:18
DX: K11.6 Mucocele of salivary gland (principal)
CPT/HCPCS: 99282-25